=== PATIENT | female | born 1950 | race Caucasian/White ===

== ENCOUNTER 2025-05-22 08:33 | Day surgery (SDC) | payer MEDICARE, BC ==
[~2025-05-22 08:33] MED LIST: Lactated Ringers 1,000 ML IV SCH
[2025-05-22] MEDS ORDERED: fentaNYL 100 MCG/2 ML SDV ONE (10:20)
[2025-05-22] MEDS ORDERED: Midazolam 1 MG/ML 2 ML SDV ONE (10:20)
[2025-05-22] MEDS ORDERED: Propofol 200 MG/20 ML SDV ONE (10:20)
== END 2025-05-22 11:56 | disposition home or self-care (01) ==
LOC: VM.SDS 08:33
PROVIDERS: ATTEND Student in an Organized Health Care Education/Training Program
DX: Z12.11 Encounter for screening for malignant neoplasm of colon (principal); D12.0 Benign neoplasm of cecum; R19.5 Other fecal abnormalities; E78.00 Pure hypercholesterolemia, unspecified; E66.9 Obesity, unspecified; Z88.5 Allergy status to narcotic agent; Z68.30 Body mass index [BMI] 30.0-30.9, adult; Z79.899 Other long term (current) drug therapy
CPT/HCPCS: 00811; 88305; 99100; J2250; J2704; J3010